=== PATIENT | female | born 1935 | race Caucasian/White ===

== ENCOUNTER 2018-12-19 19:26 | Inpatient (IN) ==
[2018-12-19 20:34] LABS: Basophils # 0.1 10*3/uL (0.0-0.2); Basophils % 0.3 % (0.0-0.8); Hematocrit 38.7 VOL% (35.7-47.0); Hemoglobin 12.3 GM/DL (12.0-16.0); Immature Granulocytes % 0.6 %; Immature Granulocytes Absolute 0.13 #; Lymphocytes # 1.2 10*3/uL (1.4-4.0); Lymphocytes % 5.9 % (21.3-54.2); Mean Corpuscular HGB Conc 31.8 GM/DL (32-36); Mean Corpuscular Hemoglobin 28 PG (27-34); Mean Corpuscular Volume 87.2 FL (87-102); Mean Platelet Volume 9.4 FL (9.6-12.0); Monocytes # 0.7 10*3/uL (0.11-0.8); Monocytes % 3.5 % (1.7-12.7); Neutrophils # 18.1 10*3/uL (1.4-7.4); Neutrophils % 89.7 % (38.7-73.9); Platelet Count 188 T/CUMM (130-400); Red Blood Count 4.44 MC/CUMM (3.8-5.5); Red Cell Distribution Width 15.1 % (9.3-17.3); White Blood Count 20.2 T/CUMM (4-12)
[2018-12-19 20:56] LABS: Calcium 8.5 MG/DL (8.5-10.1); Osmolality,Calculated 262.7 MOS/KG (273-304); Potassium 4.2 MMOL/L (3.5-5.1)
[2018-12-19 20:59] LABS: Lymphocytes 3 % (20-55); Segmented Neutrophils 94 % (50-85); Total Cells Counted 100
[2018-12-19 21:00] LABS: Hypochromasia Slight
[2018-12-19 21:01] LABS: Anisocytosis Slight; Microcytosis Slight; Ovalocytes Slight
[2018-12-19 21:02] LABS: Platelet Estimate Adequate
[2018-12-19] MEDS ORDERED: cefTRIAXone 1,000 MG in SODIUM CHLORIDE 0.9% 100 ML IV STA (21:08)
[2018-12-19] MEDS ORDERED: ONDANSETRON 4 MG/2 ML VIAL IV PRN (21:11)
[2018-12-19] MEDS ORDERED: ALBUTEROL 2.5 MG/3 ML NEB RESP TX PRN (21:30)
[2018-12-20] MEDS ORDERED: MAGNESIUM HYDROXIDE SUSP 30 ML UDCUP PO PRN (09:59)
[2018-12-20] MEDS ORDERED: ACETAMINOPHEN 325 MG TABLET PO PRN (09:59)
[2018-12-20] MEDS: SODIUM CHLORIDE 0.45% 1,000 ML IV SCH (12:54)
[2018-12-20] MEDS: AZITHROMYCIN INJ 250 MG in SODIUM CHLORIDE 0.9% 250 ML IV SCH (12:54)
[2018-12-20] MEDS: APIXABAN 2.5 MG TABLET PO SCH (20:22)
[2018-12-20] MEDS: cefTRIAXone 1,000 MG in SYRINGE 1 EACH IV SCH (20:22)
[2018-12-21 00:42] LABS: Apearance,Urine CLEAR (Clear); Bilirubin,Urine Negative (Negative); Blood, Urine Small mg/dL (Negative); Glucose,Urine (UA) Negative (Negative); Ketones,Urine Negative (Negative); Mucus,Urine Occasional /LPF (Occasional); Nitrite,Urine Negative (Negative); Protein,Urine Negative; RBC,Urine 7 /HPF (0-4); Squamous Epithelial Cell,Urine Occasional /HPF (0-10); Urine Color Yellow (Yellow); Urine Specific Gravity 1.013 (1.001-1.035); WBC,Urine <1 /HPF (0-6)
[2018-12-21] MEDS: SODIUM CHLORIDE 0.45% 1,000 ML IV SCH (04:15)
[2018-12-21 06:35] LABS: Basophils % 0.3 % (0.0-0.8); Eosinophils # 0.1 10*3/uL (0.0-0.87); Eosinophils % 1.1 % (0.00-10.9); Hematocrit 36.6 VOL% (35.7-47.0); Hemoglobin 11.5 GM/DL (12.0-16.0); Immature Granulocytes % 0.4 %; Immature Granulocytes Absolute 0.04 #; Lymphocytes # 1.6 10*3/uL (1.4-4.0); Lymphocytes % 17.5 % (21.3-54.2); Mean Corpuscular HGB Conc 31.4 GM/DL (32-36); Mean Corpuscular Hemoglobin 28 PG (27-34); Mean Corpuscular Volume 87.6 FL (87-102); Mean Platelet Volume 10.4 FL (9.6-12.0); Monocytes # 0.8 10*3/uL (0.11-0.8); Monocytes % 9.1 % (1.7-12.7); Neutrophils # 6.6 10*3/uL (1.4-7.4); Neutrophils % 71.6 % (38.7-73.9); Platelet Count 184 T/CUMM (130-400); Red Blood Count 4.18 MC/CUMM (3.8-5.5); Red Cell Distribution Width 15.1 % (9.3-17.3); White Blood Count 9.2 T/CUMM (4-12)
[2018-12-21] MEDS: LEVOTHYROXINE 75 MCG TABLET PO SCH (06:39)
[2018-12-21 06:55] LABS: Calcium 7.6 MG/DL (8.5-10.1); Osmolality,Calculated 270.8 MOS/KG (273-304); Potassium 3.6 MMOL/L (3.5-5.1)
[2018-12-21 06:57] LABS: Risk Ratio 2.79; VLDL CHOLESTEROL 17.6 MG/DL
[2018-12-21] MEDS: PANTOPRAZOLE 40 MG TABLET PO SCH (09:57)
[2018-12-21] MEDS: OLMESARTAN 20 MG TABLET PO SCH (09:57)
[2018-12-21] MEDS: APIXABAN 2.5 MG TABLET PO SCH ×2 (09:57→21:51)
[2018-12-21] MEDS: NEBIVOLOL 5 MG TABLET PO SCH (09:57)
[2018-12-21] MEDS: MAGNESIUM SULF INJ 2 GM in SODIUM CHLORIDE 0.45% 1,000 ML IV SCH (12:33)
[2018-12-21] MEDS: AZITHROMYCIN INJ 250 MG in SODIUM CHLORIDE 0.9% 250 ML IV SCH (12:34)
[2018-12-21] MEDS: cefTRIAXone 1,000 MG in SYRINGE 1 EACH IV SCH (21:49)
[2018-12-22] MEDS: MAGNESIUM SULF INJ 2 GM in SODIUM CHLORIDE 0.45% 1,000 ML IV SCH (03:08)
[2018-12-22 06:04] LABS: Basophils % 0.5 % (0.0-0.8); Eosinophils # 0.2 10*3/uL (0.0-0.87); Eosinophils % 3.5 % (0.00-10.9); Hematocrit 33.3 VOL% (35.7-47.0); Hemoglobin 10.2 GM/DL (12.0-16.0); Immature Granulocytes % 0.3 %; Immature Granulocytes Absolute 0.02 #; Lymphocytes # 1.7 10*3/uL (1.4-4.0); Lymphocytes % 27.3 % (21.3-54.2); Mean Corpuscular HGB Conc 30.6 GM/DL (32-36); Mean Corpuscular Hemoglobin 27 PG (27-34); Mean Corpuscular Volume 89.5 FL (87-102); Mean Platelet Volume 10.4 FL (9.6-12.0); Monocytes # 0.4 10*3/uL (0.11-0.8); Monocytes % 6.9 % (1.7-12.7); Neutrophils # 3.7 10*3/uL (1.4-7.4); Neutrophils % 61.5 % (38.7-73.9); Platelet Count 177 T/CUMM (130-400); Red Blood Count 3.72 MC/CUMM (3.8-5.5); Red Cell Distribution Width 15.2 % (9.3-17.3); White Blood Count 6.1 T/CUMM (4-12)
[2018-12-22 07:02] LABS: Calcium 7.5 MG/DL (8.5-10.1); Osmolality,Calculated 274.5 MOS/KG (273-304); Potassium 3.9 MMOL/L (3.5-5.1)
[2018-12-22] MEDS: LEVOTHYROXINE 75 MCG TABLET PO SCH (07:40)
[2018-12-22] MEDS: APIXABAN 2.5 MG TABLET PO SCH ×2 (09:41→21:20)
[2018-12-22] MEDS: OLMESARTAN 20 MG TABLET PO SCH (09:41)
[2018-12-22] MEDS: AZITHROMYCIN INJ 250 MG in SODIUM CHLORIDE 0.9% 250 ML IV SCH (09:41)
[2018-12-22] MEDS: PANTOPRAZOLE 40 MG TABLET PO SCH (09:42)
[2018-12-22] MEDS: NEBIVOLOL 5 MG TABLET PO SCH (09:42)
[2018-12-22] MEDS: cefTRIAXone 1,000 MG in SYRINGE 1 EACH IV SCH (21:20)
[2018-12-23] MEDS: LEVOTHYROXINE 75 MCG TABLET PO SCH (06:14)
[2018-12-23] MEDS: OLMESARTAN 20 MG TABLET PO SCH (09:07)
[2018-12-23] MEDS: NEBIVOLOL 5 MG TABLET PO SCH (09:08)
[2018-12-23] MEDS: PANTOPRAZOLE 40 MG TABLET PO SCH (09:08)
[2018-12-23] MEDS: APIXABAN 2.5 MG TABLET PO SCH (09:08)
[2018-12-23] MEDS: AZITHROMYCIN INJ 250 MG in SODIUM CHLORIDE 0.9% 250 ML IV SCH (09:14)
[2018-12-23 11:48] VITALS: BP 175/82
== END 2018-12-23 11:52 | disposition home or self-care (01) | DRG 198 ==
LOC: N.ED 19:26 → N.EDINP 21:09 → N.2E 22:01
PROVIDERS: ADMIT Internal Medicine; ATTEND Internal Medicine